=== PATIENT | male | born 1995 | race Caucasian/White ===

== ENCOUNTER 2025-01-22 14:25 | Emergency (ER) | payer OTHER ==
[~2025-01-22] VITALS: Ht 188 cm; Wt 111.6 kg
[2025-01-22] MEDS ORDERED: MELATONIN5 M2 PO (14:37)
[2025-01-22] MEDS ORDERED: SUMATRIPTAN SU100 MG PO (14:37)
[2025-01-22] MEDS ORDERED: HYDROXYZINE HCL50 MG PO (14:37)
[2025-01-22 17:04] VITALS: BP 119/78
== END 2025-01-22 17:06 | disposition home or self-care (01) ==
LOC: ED 14:25
DX: S01.412A Laceration without foreign body of left cheek and temporomandibular area, initial encounter (principal); Y04.0XXA Assault by unarmed brawl or fight, initial encounter; Z79.899 Other long term (current) drug therapy
CPT/HCPCS: 12013; 70450; 70486; 99284-25

== ENCOUNTER 2025-04-17 13:32 | Emergency (ER) | payer OTHER ==
[~2025-04-17] VITALS: Ht 188 cm; Wt 111.0 kg
[~2025-04-17 13:32] MED LIST: HYDROXYZINE HCL50 MG PO; MELATONIN5 M2 PO; SUMATRIPTAN SU100 MG PO
[2025-04-17 13:47] LABS: BASOPHILS 0.2 % (0-2); HEMOGLOBIN 14.5 g/dL (12.0-18.0); LYMPHOCYTES 17.1 % (24-44); MCH 29.4 (27-36); MCHC 34.5 g/dl (30-36); MCV 85.2 fl (81-99); MONOCYTES 8.2 % (0-12); NEUTROPHILS 73.5 % (39-80); PLATELET COUNT 234 K/uL (140-440); RBC 4.94 M/ul (4.3-5.7); RDW 13.8 (10.5-15.0)
[2025-04-17 14:05] LABS: ALBUMIN/GLOBULIN RATIO 1.21 (1.1-2.4); ALCOHOL, MEDICAL <3 ng/dL (<3); ALKALINE PHOSPHATASE 54 U/L (46-116); ALT (SGPT) 17 U/L (14-59); ANION GAP 13.7 (7-21); AST (SGOT) 15 U/L (15-37); BILIRUBIN, TOTAL 0.4 mg/dL (0.2-1.0); BUN/CREATININE RATIO 11.92 (6.0-28.6); CALCIUM 8.7 mg/dL (8.5-10.1); CARBON DIOXIDE 25 mmol/L (21-32); CHLORIDE 104 mmol/L (98-107); CREATININE, SERUM 1.09 mg/dL (0.70-1.30); GLOMERULAR FILTRATION RATE,EST 95 mL/min (>60); POTASSIUM 3.7 mmol/L (3.5-5.1); PROTEIN, TOTAL 7.3 g/dL (6.4-8.2); UREA NITROGEN 13 mg/dL (7-18)
[2025-04-17] MEDS ORDERED: ondansetron HCL 4 MG/2 ML VIAL IV ONE (14:15)
[2025-04-17] MEDS ORDERED: MORPHINE SULFATE 4 MG/ML VIAL IV ONE (14:15)
[2025-04-17] MEDS ORDERED: TRANEXAMIC ACID 1,000 MG/10 ML AMP TOP ONE (15:30)
[2025-04-17 16:30] VITALS: BP 137/83
== END 2025-04-17 16:30 | disposition other institution, planned readmission (95) ==
LOC: ED 13:32
PROVIDERS: Emergency Medicine
DX: S01.81XA Laceration without foreign body of other part of head, initial encounter (principal); Z79.899 Other long term (current) drug therapy; Y04.0XXA Assault by unarmed brawl or fight, initial encounter
CPT/HCPCS: 12011; 36415; 70450; 71260; 72125; 74177; 80053; 85025; 99284-25; G0480; J2270; J2405; Q9967